=== PATIENT | male | born 1990 | race Caucasian/White ===

== ENCOUNTER 2025-03-18 08:04 | Day surgery (SDC) | payer BC ==
[~2025-03-18 08:04] MED LIST: Albuterol 0.083% 2.5 MG/3 ML Neb Soln NEB PRN; Naloxone 0.4 MG/ML SDV IVPUSH PRN; Ondansetron 4 MG/2 ML SDV IVPUSH PRN; ceFAZolin 2 GM in Water For Injection, Sterile 20 ML IVPUSH ONE; fentaNYL 50 MCG/ML SDV IVPUSH PRN
[2025-03-18] MEDS: Lactated Ringers 1,000 ML IV SCH (08:45)
[2025-03-18] MEDS ORDERED: Propofol 200 MG/20 ML SDV ONE (08:49)
[2025-03-18] MEDS ORDERED: fentaNYL 100 MCG/2 ML SDV ONE (08:49)
[2025-03-18] MEDS ORDERED: Midazolam 1 MG/ML 2 ML SDV ONE (08:49)
[2025-03-18] MEDS ORDERED: dexmedeTOMIDine HCl 200 MCG/2 ML SDV ONE (08:50)
[2025-03-18] MEDS ORDERED: Ropivacaine 0.5% 5 MG/ML 30 ML SDV ONE (08:52)
[2025-03-18] MEDS ORDERED: Dexamethasone 4 MG/ML 5 ML MDV ONE (10:21)
[2025-03-18] MEDS ORDERED: Ondansetron 4 MG/2 ML SDV ONE (10:21)
[2025-03-18] MEDS ORDERED: Acetaminophen/HYDROcodone 325-5 MG Tab PO PRN (11:04)
[2025-03-18] MEDS ORDERED: Lactated Ringers 1,000 ML IV SCH (11:15)
== END 2025-03-18 12:57 | disposition home or self-care (01) ==
LOC: MW.SDS 08:04
PROVIDERS: ATTEND Surgery
DX: K43.6 Other and unspecified ventral hernia with obstruction, without gangrene (principal); F17.210 Nicotine dependence, cigarettes, uncomplicated; Z79.899 Other long term (current) drug therapy
CPT/HCPCS: 49592; 64488; A9270; J0665; J0690; J1100; J2003; J2250; J2405; J2704; J2795; J3010; J7120; 00752; J3490